=== PATIENT | female | born 1940 | race Caucasian/White ===

== ENCOUNTER 2017-02-22 08:01 | Emergency (ER) | payer BC ==
[~2017-02-22] VITALS: Ht 165.1 cm; Wt 86.4 kg
[~2017-02-22 08:01] MED LIST: ASPCH81X PO; CALCTAB5 PO; CHOL100010 PO; LISI-461 PO; ZTA10 PO
[2017-02-22 08:08] VITALS: TEMP 36.8; Ht 165.1 cm; Wt 86.4 kg
[2017-02-22] MEDS ORDERED: CALC-51 PO (08:21)
[2017-02-22] MEDS ORDERED: CHOL100041 PO (08:21)
[2017-02-22] MEDS ORDERED: ACETAMINOPHEN 325 MG TAB PO STA (08:29)
--- NOTE | 2017-02-22 09:11 | DIAGNOSTIC IMAGING REPORT ---
RIGHT KNEE 3 VIEWS CLINICAL HISTORY: R knee pain Right pain COMPARISON: None. DISCUSSION: Moderate degenerative change all major joint compartments. Minimal reactive osteophytic change. No acute bony abnormality. Cortical margins are intact. There is no evidence for soft tissue swelling. IMPRESSION: Moderate degenerative change. No acute process. The above report was generated using voice recognition software. It may contain grammatical, syntax or spelling errors. Electronically signed by: Keagan Mackay M.D. 02/22/2017 9:10 AM Dictated Date/Time: 02/22/2017 9:09 AM
--- NOTE | 2017-02-22 09:13 | DIAGNOSTIC IMAGING REPORT ---
RIGHT HIP UNILATERAL 2 VIEWS CLINICAL HISTORY: R hip pain Right pain COMPARISON: None. DISCUSSION: Moderate degenerative narrowing right hip joint space. Minimal calcific trochanteric bursitis. No evidence for acetabular protrusion. No evidence of fracture dislocation. There is no evidence for soft tissue swelling. IMPRESSION: Mild/moderate degenerative change. Mild calcific trochanteric bursitis. The above report was generated using voice recognition software. It may contain grammatical, syntax or spelling errors. Electronically signed by: Keagan Mackay M.D. 02/22/2017 9:12 AM Dictated Date/Time: 02/22/2017 9:11 AM
--- NOTE | 2017-02-22 10:00 | DIAGNOSTIC IMAGING REPORT ---
RIGHT VENOUS DOPP LOWER EXT UNILAT CLINICAL HISTORY: R leg edema Right pain. Edema. TECHNIQUE: Venous Doppler COMPARISON STUDY: None FINDINGS: Normal study IMPRESSION: Normal study The above report was generated using voice recognition software. It may contain grammatical, syntax or spelling errors. Electronically signed by: Keagan Mackay M.D. 02/22/2017 9:59 AM Dictated Date/Time: 02/22/2017 9:58 AM
[2017-02-22 11:42] VITALS: BP 184/78; PULSE 84; O2SAT 97
--- NOTE | 2017-02-22 16:17 | EMERGENCY ROOM VISIT NOTE ---
History First contact with patient: 08:14 Chief Complaint: FALL Stated Complaint: LEG PAIN History of Present Illness The patient is a 76 year old white female who presents to the Emergency Room with complaints of right leg pain in her hip and knee. She describes it as being all over the leg. Patient fell down 13 steps about a week ago. She had significant ecchymosis throughout the leg and buttock. She states she has been ambulatory. She was attempting to get up off the couch last night to go to the bathroom. She felt a pop somewhere in her leg and had excruciating pain. She points to the back of her knee as the area of worst discomfort. She has been unable to ambulate without severe pain since then. She denies any numbness or tingling. Any active motion of the leg increases her pain. She states she cannot bend the leg due to pain. She did take 1 tablet of Tylenol last night. Her son accompanies her today. No prior history of similar discomfort. No prior history of blood clots. Review of Systems REVIEW OF SYSTEM: HEENT: No dizziness, visual problems, hearing loss, or tinnitus. There is no difficulty swallowing and no oral lesions are present. LYMPH: No adenopathy. PULMONARY: No cough, shortness of breath, sputum production or hemoptysis. CARDIOVASCULAR: No chest pain, palpitations, shortness of breath or peripheral edema. GASTROINTESTINAL: No diarrhea, constipation, nausea, vomiting, or abdominal pain. GENITOURINARY: No dysuria, frequency, urgency or nocturia. NEUROLOGIC: No weakness, muscle tenderness, epilepsy or history of neurological problems. MUSCULOSKELETAL: No history of joint tenderness/swelling. Positive history of arthritis and arthralgias. SKIN: No rashes or lesions. PSYCHIATRIC: No history of depression or mental illness. ENDOCRINE: No history of diabetes, thyroid disorders, or abnormal hair growth. Past Medical/Surgical History Medical Problems: (1) Dyslipidemia (2) Hypertension Family History Diabetes mellitus BROTHER FH: CAD (coronary artery disease) FATHER (passed at age 57 from [place]) Stroke BROTHER Social History Smoking Status: Never Smoker Smokeless Tobacco Use: No Alcohol Use: none Drug Use: none Housing Status: lives with family Occupation Status: retired Current/Historical Medications Scheduled Aspirin (Aspirin Chewable), 81 MG PO 3XWK Calcium Carbonate-Vitamin D (Calcium), 1 TAB PO BID Cholecalciferol (D 1000), 1,000 UNITS PO DAILY Ezetimibe (Zetia), 10 MG PO QPM Lisinopril (Lisinopril), 10 MG PO QPM Physical Exam Vital Signs Date Time Temp Pulse Resp B/P (MAP) Pulse Ox O2 Delivery O2 Flow Rate FiO2 02/22/17 11:42 84 20 184/78 97 02/22/17 10:16 78 20 195/92 100 02/22/17 08:08 36.8 70 18 180/90 98 Room Air Physical Exam Gen.: Well-developed, elderly white female, in obvious discomfort. No acute distress. Laying on a bed. Alert and oriented. Skin: Warm and dry with good turgor. No rashes or lesions. Extensive ecchymosis on her clements, anterior thigh, right buttock, and right flank. No Erythema. The patient is not diaphoretic. No abrasions. Mild diffuse edema present throughout the right leg when compared to the left. Musculoskeletal: Intact motor function to the toes and ankle. She also has intact motor function to the knee and hip. She is able to perform straight leg raise. No shortening of the leg. No increase in pain with log rolling of the hip. She describes some discomfort with palpation through the buttock. No palpable defect in the hamstring or gastroc. Good tension on the medial and lateral hamstring tendons as well as over the patellar tendon and quadriceps tendon. No defect in the Achilles tendon. She has discomfort with palpation over the tibialis anterior, gastroc, distal hamstring, distal quadricep, and right buttock. Pain is diffuse and nonfocal. Neurologic: Gross sensation is intact across the lower extremities by soft touch. Peripheral pulses are 2+. DTRs 2+ at the knee. Medical Decision & Procedures ER Provider Diagnostic Interpretation: Radiographic imaging obtained today of the right knee and right hip was reviewed by me and read by radiology. Mild arthritic changes. No evidence for fracture. Ultrasound examination of the right leg was also obtained to rule out DVT. This was read by radiology as negative for DVT. Medications Administered Medications (Trade) Dose Ordered Sig/Miky Route Start Time Stop Time Status Last Admin Dose Admin Acetaminophen (Tylenol Tab) 650 mg NOW STAT PO 02/22/17 08:29 02/22/17 08:33 DC 02/22/17 08:38 650 MG Tylenol 650 mg by mouth ED Course Patient and her family were educated regarding today's findings. Conservative care measures were discussed. Radiographic imaging was obtained. Ultrasound imaging was obtained as well. These were unremarkable. Patient was given Tylenol 650 mg orally in the department. I did have her do a ambulatory trial using a walker. This was successful. She was able to ambulate fairly comfortably. She desired discharge to home. I think this is reasonable. Continue using a walker for assistance until she has resolution of her pain. Continue Tylenol 650 mg every 6 hours as needed. Follow-up with her PCP for reexamination and possible physical therapy referral. Return to the ED for any acute changes or sudden worsening of pain. Medical Decision Possibility of hip fracture, knee fracture, tendon rupture, ligament rupture, muscle tear, meniscal tear, tendon disruption, and radiculopathy from her back were considered, among others. Medication Reconcilliation Current Medication List: was personally reviewed by me Blood Pressure Screening Patient's blood pressure: Normal blood pressure Impression Primary Impression: Pain in right leg Departure Information Referrals Meredith Graf M.D. (PCP) Patient Instructions My [facility]
== END 2017-02-22 11:43 | disposition home or self-care (01) ==
LOC: EDBD 08:01 → C.EDA 08:02
DX: M79.604 Pain in right leg (principal); E78.5 Hyperlipidemia, unspecified; I10 Essential (primary) hypertension; Z83.3 Family history of diabetes mellitus; Z82.49 Family history of ischemic heart disease and other diseases of the circulatory system; Z79.82 Long term (current) use of aspirin; Z79.899 Other long term (current) drug therapy

== ENCOUNTER 2017-07-15 23:27 | Emergency (ER) | payer BC ==
[~2017-07-15] VITALS: Ht 165.1 cm; Wt 83.0 kg
[~2017-07-15 23:27] MED LIST changes: +CALC-51 PO; -CALCTAB5 PO; -CHOL100010 PO; +CHOL100041 PO
[2017-07-15 23:30] VITALS: TEMP 36.6; Ht 165.1 cm; Wt 83.0 kg
[2017-07-15] MEDS ORDERED: ONDANSETRON INJ 2 MG/ML 2 ML VIAL IV STA (23:56)
[2017-07-15] MEDS ORDERED: SODIUM CHLORIDE 0.9% 1000ML 1,000 ML IV STA (23:56)
[2017-07-15] MEDS ORDERED: SODIUM CHLORIDE 0.9% 500ML 500 ML IV STA (23:56)
[2017-07-15] MEDS ORDERED: MoRPHine SULFATE 2 MG/ML CARP IV STA (23:56)
[2017-07-16] MEDS ORDERED: OPTIRAY 320 IV PRN
[2017-07-16 00:13] LABS: BASO % 0.2 %; BASO ABS # 0.02 K/uL (0-0.2); HEMATOCRIT 46.9 % (37-47); HEMOGLOBIN 16.2 g/dL (12.0-16.0); IG# 0.04 K/uL (0.00-0.02); LYMPH % 4.3 %; LYMPH ABS # 0.52 K/uL (1.2-3.4); MEAN CELL VOLUME 88.8 fL (80-100); MEAN CORPUSCULAR HEMOGLOBIN 30.7 pg (25-34); MEAN CORPUSCULAR HGB CONC 34.5 g/dl (32-36); MEAN PLATELET VOLUME 9.3 fL (7.4-10.4); MONO % 3.3 %; MONO ABS # 0.39 K/uL (0.11-0.59); NEUT % 91.9 %; NEUT ABS # 10.99 K/uL (1.4-6.5); PLATELET COUNT 196 K/uL (130-400); RED CELL DISTRIBUTION WIDTH CV 13.2 % (11.5-14.5); RED CELL DISTRIBUTION WIDTH SD 42.6 fL (36.4-46.3); WHITE BLOOD COUNT 11.96 K/uL (4.8-10.8)
--- NOTE | 2017-07-16 00:19 | EMERGENCY ROOM VISIT NOTE ---
History Report prepared by Tonya: Law Suarez Under the Supervision of: Dr. Yessenia Mackenzie M.D. First contact with patient: 23:48 Chief Complaint: GI ASSESSMENT Stated Complaint: DIVERTICULITIS,DIARRHEA,VOMITING,RECTAL BLEEDING Nursing Triage Summary: pt reports vomiting since 1430 then diarrhea and abd pain. pt reports that 1 hour ago she started with blood in stool. hx diverticulitis History of Present Illness The patient is a 76 year old female who presents to the Emergency Room with complaints of persistent vomiting since around 1430 today. She states that she is vomiting a yellow fluid. The patient states that an hour later ago she started having diarrhea and abdominal pain. She additionally she states that within the last hour she is having bright red stools that came along with diarrhea. The patient has a history of diverticulitis, and the patient had macaroni and cheese earlier. The patient denies any trouble urinating, and she states that she has not had blood in her stool before tonight. She states that she does not have any history of kidney problems, and she states that she has not been taking aspirin recently. The patient has a history of high cholesterol and high blood pressure. Source of History: patient Onset: 1429 Position: other (global) Quality: other (vomiting) Timing: other (persistent) Associated Symptoms: + abdominal pain, + diarrhea Note: Associated symptoms: Bright red blood in her stools Review of Systems See HPI for pertinent positives & negatives. A total of 10 systems reviewed and were otherwise negative. Past Medical & Surgical Medical Problems: (1) Dyslipidemia (2) Hypertension Family History Diabetes mellitus BROTHER FH: CAD (coronary artery disease) FATHER (passed at age 57 from [place]) Stroke BROTHER Social History Smoking Status: Never Smoker Alcohol Use: none Drug Use: none Housing Status: lives with family Occupation Status: retired Current/Historical Medications Scheduled Aspirin (Aspirin Chewable), 81 MG PO 3XWK Calcium Carbonate-Vitamin D (Calcium), 1 TAB PO BID Cholecalciferol (D3 2000), 2,000 UNITS PO DAILY Ezetimibe (Zetia), 10 MG PO QPM Hydrochlorothiazide (Hctz), 12.5 MG PO DAILY Lisinopril (Lisinopril), 20 MG PO QPM Allergies Coded Allergies: Penicillins (Verified Allergy, Severe, HIVES-SWELLING, 07/16/17) Ciprofloxacin (Verified Allergy, Intermediate, RASH, 07/16/17) DEVELOPED RASH WITH IV CIPRO 03/10/14 Daptomycin (Verified Allergy, Intermediate, RASH, 07/16/17) Doxycycline (Verified Allergy, Intermediate, RASH, 07/16/17) Influenza Vaccines (Verified Allergy, Intermediate, swelling, 07/16/17) Trazodone (Verified Allergy, Intermediate, VISUAL DISTURBANCES, 07/16/17) Statins (Verified Allergy, Unknown, unknown, 07/16/17) Physical Exam Vital Signs Date Time Temp Pulse Resp B/P (MAP) Pulse Ox O2 Delivery O2 Flow Rate FiO2 07/16/17 06:21 76 18 149/90 96 Room Air 07/16/17 04:22 73 07/16/17 03:49 167/91 98 Room Air 07/16/17 03:00 77 16 07/16/17 01:01 77 18 179/84 98 Room Air 07/16/17 00:23 76 07/15/17 23:30 36.6 89 20 178/106 97 Room Air Physical Exam Vital signs reviewed. General: Well-appearing female, in no significant distress. HEENT: No scleral icterus, PERRLA, neck supple. Atraumatic. Cardiovascular: Regular rate and rhythm, no extra sounds. Pulmonary: Clear to auscultation bilaterally, normal work of breathing. Abdomen: Mid diffuse abdominal tenderness. No rebound or guarding. Soft, nondistended, positive bowel sounds. Musculoskeletal: Atraumatic, no peripheral edema. Neurologic: Patient awake alert and oriented x 3. Skin: Warm, dry, no rash Medical Decision & Procedures ER Provider Diagnostic Interpretation: Radiology results as stated below per my review and radiologist interpretation: CT ABDOMEN & PELVIS with contrast: Compared to 11/30/15. Wall thickening of the descending and rectosigmoid colon with adjacent stranding suggestive of colitis. Differential considerations include inflammatory/infectious or ischemic etiologies. Colonic diverticulitis again noted. No drainable fluid collection or free air. No mild gastric wall thickening or underdistention. No evidence of bowel obstruction. Mildly thickened underdistended bladder. Thickening of the bilateral adrenal glands. Small fat-containing umbilical hernia. Bibasilar atelectatic changes. Additional incidental findings. Radiologist: Stacey Dodson Laboratory Results 07/15/17 23:55 Red Blood Count 5.28, Mean Corpuscular Volume 88.8, Mean Corpuscular Hemoglobin 30.7, Mean Corpuscular Hemoglobin Concent 34.5, Mean Platelet Volume 9.3, Neutrophils (%) (Auto) 91.9, Lymphocytes (%) (Auto) 4.3, Monocytes (%) (Auto) 3.3, Eosinophils (%) (Auto) 0.0, Basophils (%) (Auto) 0.2, Neutrophils # (Auto) 10.99, Lymphocytes # (Auto) 0.52, Monocytes # (Auto) 0.39, Eosinophils # (Auto) 0.00, Basophils # (Auto) 0.02 07/15/17 23:55 Test 07/15/17 23:55 07/16/17 00:10 07/16/17 05:01 07/16/17 05:11 White Blood Count 11.96 K/uL (4.8-10.8) Red Blood Count 5.28 M/uL (4.2-5.4) Hemoglobin 16.2 g/dL (12.0-16.0) Hematocrit 46.9 % (37-47) Mean Corpuscular Volume 88.8 fL (80-100) Mean Corpuscular Hemoglobin 30.7 pg (25-34) Mean Corpuscular Hemoglobin Concent 34.5 g/dl (32-36) Platelet Count 196 K/uL (130-400) Mean Platelet Volume 9.3 fL (7.4-10.4) Neutrophils (%) (Auto) 91.9 % Lymphocytes (%) (Auto) 4.3 % Monocytes (%) (Auto) 3.3 % Eosinophils (%) (Auto) 0.0 % Basophils (%) (Auto) 0.2 % Neutrophils # (Auto) 10.99 K/uL (1.4-6.5) Lymphocytes # (Auto) 0.52 K/uL (1.2-3.4) Monocytes # (Auto) 0.39 K/uL (0.11-0.59) Eosinophils # (Auto) 0.00 K/uL (0-0.5) Basophils # (Auto) 0.02 K/uL (0-0.2) RDW Standard Deviation 42.6 fL (36.4-46.3) RDW Coefficient of Variation 13.2 % (11.5-14.5) Immature Granulocyte % (Auto) 0.3 % Immature Granulocyte # (Auto) 0.04 K/uL (0.00-0.02) Est Creatinine Clear Calc Drug Dose 47.2 ml/min Estimated GFR () 57.7 Estimated GFR (Non- 49.8 BUN/Creatinine Ratio 17.4 (10-20) Calcium Level 9.1 mg/dl (8.5-10.1) Total Bilirubin 0.8 mg/dl (0.2-1) Direct Bilirubin 0.1 mg/dl (0-0.2) Aspartate Amino Transf (AST/SGOT) 17 U/L (15-37) Alanine Aminotransferase (ALT/SGPT) 27 U/L (12-78) Alkaline Phosphatase 87 U/L (45-117) Total Protein 7.7 gm/dl (6.4-8.2) Albumin 4.0 gm/dl (3.4-5.0) Bedside Hemoglobin 16.0 g/dl (12.0-16.0) Bedside Hematocrit 47 % (37-47) Bedside Sodium 141 mEq/L (135-144) Bedside Potassium 3.8 mEq/L (3.3-5.0) Bedside Chloride 103 mEq/L (101-112) Bedside Total CO2 26 mEq/l (24-31) Anion Gap 18.0 mmol/L (16-25) Bedside Blood Urea Nitrogen 19 mg/dl (7-18) Bedside Creatinine 1.1 mg/dl (0.6-1.3) Bedside Glucose (other) 172 mg/dl (70-99) Bedside Ionized Calcium (Natalya) 1.14 mmol/l (1.12-1.32) Lipase 121 U/L (73-393) Bedside Lactic Acid Venous 1.00 mmol/L (0.90-1.70) Laboratory results per my review. Medications Administered Medications (Trade) Dose Ordered Sig/Miky Route Start Time Stop Time Status Last Admin Dose Admin Sodium Chloride 500 ml @ 999 mls/hr Q31M STAT IV 07/15/17 23:56 07/16/17 00:26 DC 07/15/17 23:56 999 MLS/HR Sodium Chloride 1,000 ml @ 150 mls/hr Q6H40M STAT IV 07/15/17 23:56 07/16/17 06:35 DC 07/15/17 23:56 150 MLS/HR Ondansetron HCl (Zofran Inj) 4 mg NOW STAT IV 07/15/17 23:56 07/15/17 23:59 DC 07/16/17 00:11 4 MG Morphine Sulfate (MoRPHine SULFATE INJ) 2 mg NOW STAT IV 07/15/17 23:56 07/15/17 23:59 DC 07/16/17 00:11 2 MG Morphine Sulfate (MoRPHine SULFATE INJ) 2 mg NOW STAT IV 07/16/17 01:09 07/16/17 01:10 DC 07/16/17 01:14 2 MG Morphine Sulfate (MoRPHine SULFATE INJ) 2 mg NOW STAT IV 07/16/17 03:38 07/16/17 03:39 DC 07/16/17 04:03 2 MG Ondansetron HCl (ZOFRAN ODT 4MG Home Pack) 1 homepack UD ONCE PO 07/16/17 04:00 07/16/17 04:01 DC 07/16/17 06:02 1 HOMEPACK Acetaminophen 650 mg/Empty Bag 65 ml @ 260 mls/hr NOW STAT IV 07/16/17 05:16 07/16/17 05:30 DC 07/16/17 06:01 260 MLS/HR ECG Indication: vomiting Rate (beats per minute): 69 Rhythm: normal sinus Findings: no acute ischemic change, other (LVH. 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 Repolarization abnormality in the inferior leads. ) Comparison ECG Date: 03/10/14 Change: no significant change Change: Patient's electrocardiogram interpreted by me. ED Course 2348: Past medical records reviewed. The patient was evaluated in room A4. A complete history and physical examination was performed. 2356: Morphine Sulfate 2mg IV, Zofran 4mg IV, Sodium Chloride 1000 ml @ 150 mls/ hr IV, Sodium Chloride 500 ml @ 999 mls/hr IV 0109: Morphine Sulfate 2mg IV 0158: Zofran 4mg IV 0309: I reevaluated the patient, and she was doing well. 0338: Morphine Sulfate 2mg IV 0400: Zofran ODT 4mg Home Pack PO 0409: I reassessed her, and she was having more abdominal pain, and she is uncomfortable with going home. 0457: ON reassessment, the patient had some upper abdominal pain. She went to the bathroom and tolerated a glass of water. 0516: Acetaminophen 650mg/ Empty Bag 65ml @ 260mls/hr 0535: Upon reevaluation, the patient appeared to have improvement of her symptoms. I discussed findings with her. She verbalized agreement of the treatment plan. She was discharged home. Medical Decision Differential diagnosis: Etiologies such as gastroenteritis, food borne illness, infections, appendicitis , diverticulitis, inflammatory bowel disease, obstruction, GI bleed, biliary pathology, as well as others were entertained. This patient was evaluated and appears to be in no significant distress. IV access was obtained and laboratory work was drawn. The patient was placed on the director of cardiac cath lab and found to be in a normal sinus rhythm. Patient was hydrated with normal saline solution, given IV morphine and Zofran for pain and nausea. Patient's laboratory work is fairly unrevealing. WBC is mildly elevated, lipase is normal. Lactic acid is normal. The patient ambulated to the restroom without difficulty 2. CT scan of the abdomen and pelvis was performed due to the tenderness. There is evidence of a colitis, which I feels less likely ischemic with a normal lactic acid. The patient's abdominal pain has largely resolved. She was tolerating by mouth fluids. She was not able to provide a stool specimen during her stay. The patient was discharged to the care of her daughter. They will follow-up with the primary care physician within the next several days for reevaluation and return to the ER for worsening of symptoms or any medical concerns. Medication Reconcilliation Current Medication List: was personally reviewed by me Blood Pressure Screening Patient's blood pressure: Elevated blood pressure Blood pressure disposition: Elevated BP felt to be situational Impression Primary Impression: Colitis Additional Impression: Vomiting and diarrhea Scribe Attestation The scribe's documentation has been prepared under my direction and personally reviewed by me in its entirety. I confirm that the note above accurately reflects all work, treatment, procedures, and medical decision making performed by me. Departure Information Dispostion Home / Self-Care Referrals Meredith Graf M.D. (PCP) Forms HOME CARE DOCUMENTATION FORM, IMPORTANT VISIT INFORMATION Patient Instructions My [facility] Additional Instructions Diagnosis: Vomiting, diarrhea, colitis Zofran 4 mg ODT every 6 hours as needed for nausea. Drink plenty of clear fluids. Advance your diet as tolerated. BRAT diet: bananas, rice, applesauce and toast Please follow up with your doctor this week for reevaluation. Return to the ED for worsening of symptoms, increased blood in stools or any medical concerns. Problem Qualifiers
[2017-07-16 00:30] LABS: ISTAT CREATININE 1.1 mg/dl (0.6-1.3); ISTAT IONIZED CALCIUM 1.14 mmol/l (1.12-1.32); ISTAT POTASSIUM 3.8 mEq/L (3.3-5.0)
[2017-07-16 00:30] LABS: CALCIUM 9.1 mg/dl (8.5-10.1); CREATININE 1.08 mg/dl (0.60-1.20); POTASSIUM 3.8 mmol/L (3.5-5.1)
[2017-07-16 00:32] LABS: TOTAL PROTEIN 7.7 gm/dl (6.4-8.2)
[2017-07-16] MEDS ORDERED: LSN20 PO (00:36)
[2017-07-16] MEDS ORDERED: HYDR12.56 PO (00:36)
[2017-07-16] MEDS ORDERED: CHOL1TAB79 PO (00:36)
[2017-07-16] MEDS ORDERED: MoRPHine SULFATE 2 MG/ML CARP IV STA ×2 (01:09→03:38)
[2017-07-16] MEDS ORDERED: ONDANSETRON INJ 2 MG/ML 2 ML VIAL IV STA (01:58)
[2017-07-16] MEDS ORDERED: ONDANSETRON HOME PACK 4MG OD TAB PO ONE (04:00)
[2017-07-16] MEDS ORDERED: ACETAMINOPHEN IV 650 MG in EMPTY BAG 0 ML IV STA (05:16)
[2017-07-16 06:21] VITALS: BP 149/90; PULSE 76; O2SAT 96
--- NOTE | 2017-07-16 07:19 | DIAGNOSTIC IMAGING REPORT ---
CT OF THE ABDOMEN AND PELVIS WITH CONTRAST CLINICAL HISTORY: Abdominal pain, bloody stool, diverticulitis. COMPARISON STUDY: CT of the abdomen and pelvis and right upper quadrant ultrasound November 15, 2015. TECHNIQUE: Following IV administration of 93 mL of [id number], axial images of the abdomen and pelvis were obtained from the lung bases to the proximal femurs. Images were reviewed in the axial, sagittal, and coronal planes. IV contrast was administered without complication. A dose lowering technique was utilized adhering to the principles of ALARA. CT DOSE: 490.61 mGy.cm FINDINGS: The liver, spleen, right adrenal gland and pancreas are unremarkable. There are suspected left-sided parapelvic cysts. There is no hydronephrosis. An 8 mm hypodense right renal lesion is too small to characterize. There is no evidence for a bowel obstruction. There is sigmoid diverticulosis. There is no evidence for acute diverticulitis. There is moderate circumferential wall thickening of the splenic flexure and descending colon with mild pericolonic infiltration. There is no free air, pneumatosis or portal venous gas. There are no suspicious osseous lesions. There is extensive plaque of the abdominal aorta. IMPRESSION: 1. Moderate wall thickening of the splenic flexure of the colon and the descending colon with mild pericolonic infiltration consistent with colitis. This distribution raises the possibility of ischemic colitis. However, an infectious colitis could appear similar. Similar colonic involvement was noted on earlier CT of November 15, 2015. 2. Sigmoid diverticulosis without evidence for acute diverticulitis. Electronically signed by: Destin Grewal M.D. 07/16/2017 7:18 AM Dictated Date/Time: 07/16/2017 7:13 AM
== END 2017-07-16 06:21 | disposition home or self-care (01) ==
LOC: C.EDB 23:30 → C.EDA 07-16 06:21
DX: K52.9 Noninfective gastroenteritis and colitis, unspecified (principal); R11.10 Vomiting, unspecified; E78.00 Pure hypercholesterolemia, unspecified; I10 Essential (primary) hypertension; E78.5 Hyperlipidemia, unspecified; Z83.3 Family history of diabetes mellitus; Z82.49 Family history of ischemic heart disease and other diseases of the circulatory system; Z79.82 Long term (current) use of aspirin; Z79.899 Other long term (current) drug therapy